=== PATIENT | male | born 1970 | race African-American/Black ===

== ENCOUNTER 2019-12-23 16:30 | Emergency (ER) | payer SELFPAY ==
[2019-12-23 16:35] VITALS: BP 113/81; PULSE 86; RESP 18; TEMP 36.2; O2SAT 99
--- NOTE | 2019-12-23 17:36 | ED.GENADULT ---
HPI - General Adult General Chief complaint: Extremity Problem,Nontraumatic Stated complaint: right shoulder pain Time Seen by Provider: 12/23/19 16:38 Source: patient Mode of arrival: ambulatory Limitations: no limitations History of Present Illness HPI narrative: 49-year-old male patient presents to the [facility] with complaints of right shoulder pain for the past 3 weeks. 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 Patient states that when he is sleeping and lays on his right shoulder his pain increases to a 9 out of 10. Patient rates his pain currently a 5 out of 10 at this time. Patient states he has been trying to take ibuprofen and using icy hot on the area without success. Patient states he feels like there is a pull to his bicep area and radiates up to the lateral side of the right side of his neck. Patient denies doing any type of overhead work. Related Data Home Medications Medication Instructions Recorded Confirmed No Home Medications 12/23/19 12/23/19 Allergies Allergy/AdvReac Type Severity Reaction Status Date / Time No Known Allergies Allergy Verified 12/23/19 16:39 Review of Systems Review of Systems: Narrative: CONSTITUTIONAL: Denies fever, chills, or sweats. EYES: Denies visual changes, redness, or discharge. ENT: Denies rhinorrhea, congestion, sore throat, or otalgia. CARDIOVASCULAR: Denies chest pain, palpitations, or edema. RESPIRATORY: Denies cough or dyspnea. GASTROINTESTINAL: Denies abdominal pain, nausea, vomiting, or diarrhea. GENITOURINARY: Denies dysuria or hematuria. SKIN: Denies rash or itching. MUSCULOSKELETAL: Denies back pain, joint pain, or myalgia. Positive right shoulder and right upper extremity pain x3 weeks NEUROLOGIC: Denies headache, numbness, or weakness. PSYCHIATRIC: Denies anxiety or depression. PMFSH Comments At the time of my signature I agree with nursing past medical history, surgical, social, and family history. There is no relevant family history pertinent to the presenting complaint. Exam Narrative: Exam Narrative: GENERAL: Well-appearing, well-nourished, and in no acute distress. HEAD: Normocephalic, atraumatic. EYES: PERRLA and EOMI. ENT: Nares clear, no rhinorrhea or epistaxis. Mucous membranes moist. NECK: Supple. No lymphadenopathy CHEST: Clear to auscultation. No respiratory distress. HEART: Regular rate and rhythm. No murmur heard. Normal peripheral pulses. ABDOMEN: Soft, nontender, nondistended, normal active bowel sounds. EXTREMITIES: The R shoulder is without obvious asymmetry or deformity when compared to the L shoulder. No surface trauma, ecchymosis, crepitus. No bony deformity or prominence of the humeral head No erythema, warmth, swelling. no tenderness to palpation to clavicle, A to C joint, acromion, scapula or humeral head. tenderness to palpation of the bicipital groove and soft tissues. No tenderness to palpation of the muscles of the sterncleidomastoid, pectorals, no tenderness to the biceps/triceps but states he feels a pulling with active range of motion, no deltoid, trapezius, rhomboid, latissimus dorsi, rotator cuff pain. No pain or limitation with active or passive abduction/adduction, internal/external rotation, flexion/extension. Negative empty can and drop arm test (rotator cuff). No axillary tenderness or lymphadenopathy. Normal sensation over the deltoid and ability to flex arm at elbow indicates intact axillary nerve function. Distal motor and neurovascular status is intact. SKIN: Warm, dry, no rash. NEURO: No focal deficits. Alert and oriented x3. Course Vital Signs Vital signs: Vital Signs Temperature 36.2 C L 12/23/19 16:35 Pulse Rate 86 12/23/19 16:35 Respiratory Rate 18 12/23/19 16:35 Blood Pressure 113/81 12/23/19 16:35 Pulse Oximetry 99 12/23/19 16:35 Temperature 36.2 C L 12/23/19 16:35 Pulse Rate 86 12/23/19 16:35 Respiratory Rate 18 12/23/19 16:35 Blood
[2019-12-23] MEDS: KETOROLAC (*BKC) 60 MG/2 ML VIAL IM (17:53)
== END 2019-12-23 18:08 | disposition left against medical advice (07) ==
PROVIDERS: Emergency Provider Nurse Practitioner Family
DX: M25.511 Pain in right shoulder (principal)
CPT/HCPCS: 96372; 99283; J1885

== ENCOUNTER 2019-12-24 19:03 | Emergency (ER) | payer SELFPAY ==
--- NOTE | ~2019-12-24 | XR_ITS ---
EXAMINATION: XR humerus RT INDICATION: Right arm pain TECHNIQUE: Two views of the right humerus are obtained. COMPARISON: None available FINDINGS: There is no fracture, dislocation, or subluxation. The bones, soft tissues, and joint space s are normal. IMPRESSION: 1. No acute osseous abnormality. Reviewed, dictated and finalized at location A.
[2019-12-24 19:04] VITALS: BP 128/77; PULSE 92; RESP 14; TEMP 36.5; O2SAT 100
--- NOTE | 2019-12-24 19:12 | ED.UPPEXIN ---
HPI - Extremity Injury (Upper) General Chief Complaint: Extremity Injury, Upper Stated Complaint: R arm pain Time Seen by Provider: 12/24/19 19:07 History of Present Illness HPI narrative: Intermittent right arm pain for a few weeks. Worst on inside of upper arm. Location changes. No worst when lying down. No tenderness. No trauma. Related Data Allergies Allergy/AdvReac Type Severity Reaction Status Date / Time No Known Allergies Allergy Verified 12/23/19 16:39 Review of Systems Review of Systems: All systems reviewed & are unremarkable except as noted in HPI and below Constitutional: Constitutional: Denies chills and Denies fever(s) Cardiovascular: Cardiovascular: Denies chest pain Respiratory: Respiratory: Denies dyspnea Gastrointestinal: Gastrointestinal: Denies abdominal pain and Denies nausea PMFSH Social History Social History Gender identity (if verbalized by the patient): Male Exam Const: General: healthy appearing, no acute distress and alert Orientation/consciousness: patient oriented x3 HENMT: Head: normal to inspection Neck: Neck: normal visual inspection and no lymphadenopathy Chest: Chest palpation & inspection: no tenderness Resp: Effort & Inspection: normal respiratory effort Auscultation: clear to auscultation bilaterally, no rales, no rhonchi and no wheezes Cardio: Jugular venous distension: no JVD Rate: regular rate Rhythm: regular rhythm Heart sounds: no murmurs GI: Inspection: non-distended GI Palp: Yes Soft to palpation and No Tenderness to palpation present (GI) Skin: General skin exam: normal color Neuro: General: patient oriented x3 and moves all extremities Speech: normal speech Extrem: Other: normal extremity exam Psych: Appearance: well kempt Affect: normal affect Course Vital Signs Vital signs: Vital Signs Temperature 36.5 C 12/24/19 19:04 Pulse Rate 92 12/24/19 19:04 Respiratory Rate 14 12/24/19 19:04 Blood Pressure 128/77 12/24/19 19:04 Pulse Oximetry 100 12/24/19 19:04 Temperature 36.5 C 12/24/19 19:04 Pulse Rate 92 12/24/19 19:04 Respiratory Rate 14 12/24/19 19:04 Blood Pressure 128/77 12/24/19 19:04 Pulse Oximetry 100 12/24/19 19:04 MDM - Extremity Injury (Upper) MDM Narrative Medical decision making narrative: Pain is nonspecific and not typical of musculoskeletal injury. Could represent radiculopathy. No neuro deficit. Imaging Data Radiologist's impression: ITS Impressions Humerus X-Ray 12/24/19 19:48 IMPRESSION: 1. No acute osseous abnormality. Discharge Plan Discharge Clinical Impression: Arm pain Patient Disposition: Home, Self-Care Condition: Stable Instructions: Arm Pain (ED) Prescriptions: New methylprednisolone [Medrol (Eric)] 4 mg tablets,dose pack See Rx Instructions .ROUTE .COMPLEX Qty: 21 RF: 0 cyclobenzaprine 10 mg tablet 10 mg PO TID PRN (Reason: muscle spasm) Qty: 20 RF: 0 Follow-up/Referrals: Ryan Beck MD [Physician] - PHYSICIAN,MUTUAL FUND ANALYST [Primary Care Provider] - Discharge Date/Time: 12/24/19 20:33
== END 2019-12-24 20:33 | disposition home or self-care (01) ==
PROVIDERS: Emergency Provider Emergency Medicine
DX: M79.621 Pain in right upper arm (principal)
CPT/HCPCS: 73060; 99283

== ENCOUNTER 2020-07-01 11:26 | Emergency (ER) | payer SELFPAY ==
[2020-07-01 11:31] VITALS: BP 107/67; PULSE 71; RESP 20; TEMP 36.6; O2SAT 100
[2020-07-01] MEDS: cefTRIAXone 250 MG VIAL 500 MG IM (12:07)
[2020-07-01] MEDS: LIDOCAINE HCL 1% LOCAL INJ 20 ML VIAL (12:11)
[2020-07-01 12:20] LABS: Add Urine Microscopic? YES; Appearance Urine Cloudy (Clear); Bacteria Urine Trace /hpf; Bilirubin Urine Negative (Negative); Color Urine Yellow (Yellow); Glucose Urine UA Negative (Negative); Ketones Urine Negative (Negative); Leukocyte Esterase Ur 3+ LEU/UL (Negative); Mucus Urine Moderate /lpf; Nitrate Urine Negative (Negative); Protein Urine 1+ mg/dL (Negative); Specific Grav Ur 1.014 (1.001-1.035); Urobilinogen Urine Negative mg/dL (<2.0); WBC Urine >75 /hpf
[2020-07-01 12:25] LABS: Blood Urine Negative (Negative)
--- NOTE | 2020-07-01 12:31 | ED.GENADULT ---
HPI - General Adult General Chief complaint: Urogenital-Male Stated complaint: painful urination, STD check Time Seen by Provider: 07/01/20 11:41 Source: patient Mode of arrival: ambulatory Limitations: no limitations History of Present Illness HPI narrative: This patient is a 50 year old male who presents for evaluation of a possible STDs. He states this morning he noticed dysuria and white penile discharge. He denies sexual partner having any concerning symptoms. He denies abdominal pain, back pain, penile lesions, nausea, vomiting, fever or testicular pain or swelling. Related Data Allergies Allergy/AdvReac Type Severity Reaction Status Date / Time No Known Allergies Allergy Verified 07/01/20 11:33 Review of Systems Review of Systems: All systems reviewed & are unremarkable except as noted in HPI and below PMFSH Past Medical History Medical History (Updated 07/01/20 @ 12:41 by Lisandra Kearns MD) Patient denies medical problems Social History Social History (Updated 07/01/20 @ 12:33 by Lisandra Kearns MD) Smoking packs per day: 0.5 Smoking cigarettes per day: 10.0 Smoking end date: 06/28/20 Gender identity (if verbalized by the patient): Male Exam Narrative: Exam Narrative: GENERAL: Well-appearing, well-nourished, and in no acute distress. HEAD: Normocephalic, atraumatic EYES: PERRLA and EOMI, THROAT:Mucous membranes moist, Oropharynx normal without erythema, exudate, peritonsillar swelling or fluctuance RESPIRATORY: No respiratory distress, Airway patent, Respirations non-labored, Clear to auscultation without rales, rhonchi or wheeze HEART: Regular rate and rhythm. No murmur heard. Normal peripheral pulses. ABDOMEN: Soft, nontender, nondistended, normal active bowel sounds. No masses. No rebound or guarding, No organomegaly. EXTREMITIES: No edema, normal strength with full range of motion. SKIN: Warm, dry, normal color without rash NEURO: Alert and oriented x3. CN 2-12 grossly intact. No focal deficits. PSYCH: Normal mood and affect. : Penis: Yes circumcised Neuro: General: patient oriented x3 and moves all extremities Extrem: General: normal to inspection and no pedal edema Psych: Mental Status: mental status grossly normal Affect: normal affect Course Reevaluation(s) Reevaluation #1: I Discussed with patient that he will be treated for urethritis. He was given instructed on discharge plan and the need to talk to sexual partners. Date: 07/01/20 Time: 12:37 Vital Signs Vital signs: Vital Signs Temperature 97.9 F 07/01/20 11:31 Pulse Rate 71 07/01/20 11:31 Respiratory Rate 20 07/01/20 11:31 Blood Pressure 107/67 07/01/20 11:31 Pulse Oximetry 100 07/01/20 11:31 Temperature 97.9 F 07/01/20 11:31 Pulse Rate 71 07/01/20 11:31 Respiratory Rate 20 07/01/20 11:31 Blood Pressure 107/67 07/01/20 11:31 Pulse Oximetry 100 07/01/20 11:31 Medical Decision Making Vital Signs Vital Signs: Vital Signs Temperature 97.9 F 07/01/20 11:31 Pulse Rate 71 07/01/20 11:31 Respiratory Rate 20 07/01/20 11:31 Blood Pressure 107/67 07/01/20 11:31 Pulse Oximetry 07/01/20 11:31 Temperature 97.9 F 07/01/20 11:31 Pulse Rate 07/01/20 11:31 Respiratory Rate 07/01/20 11:31 Blood Pressure 107/67 07/01/20 11:31 Pulse Oximetry 07/01/20 11:31 Lab Data Labs: Lab Results 07/01/20 07/01/20 Range/Units 11:57 11:57 Urine Color Yellow (Yellow) Urine Appearance Cloudy H (Clear) Urine pH 6.0 (5.0-9.0) Ur Specific [place] 1.014 (1.001-1.035) Urine Protein 1+ H (Negative) mg/dL Urine Glucose (UA) Negative (Negative) mg/dL Urine Ketones Negative (Negative) mg/dL Ur Blood (Man) Negative (Negative) Urine Nitrate Negative (Negative) Urine Bilirubin Negative (Negative) Urine Urobilinogen Negative (<2.0) mg/dL Leukocyte Esterase Rfl 3+ H
== END 2020-07-01 12:52 | disposition home or self-care (01) ==
PROVIDERS: Emergency Provider General Practice
DX: N34.2 Other urethritis (principal); F17.210 Nicotine dependence, cigarettes, uncomplicated
CPT/HCPCS: 81001; 87086; 87491; 87591; 96372; 99283; J0696